=== PATIENT | female | born 1945 | race Caucasian/White ===

== ENCOUNTER 2020-07-06 20:30 | Observation (INO) | payer MEDICARE ==
[2020-07-06] MEDS ORDERED: Nitroglycerin 0.4 MG TAB (25 Tab Bottle) SL PRN (21:51)
--- NOTE | 2020-07-06 22:17 | PDOC.EVN ---
Event Note - Event Note Event Note: [id number] HP
--- NOTE | 2020-07-06 23:02 | HP ---
CHIEF COMPLAINT: Chest pain. HISTORY OF PRESENT ILLNESS: Ms. Cota is a 75-year-old female with past medical history of hypertension, hyperlipidemia, GERD, osteoarthritis, epilepsy that presents as a transfer from [facility] after she presented with chest pain. The patient is a poor historian and reports it is difficult to remember things done. She does recall that she has cardiac history, but she does not exactly know the nature or any procedures done. She has been having chest pain intermittently for the past week or so; today around dinnertime, it was worse. She describes the pain as sharp, left sided, not radiating. In the emergency room, she received 100 mg of Lovenox, two sprays of nitroglycerin, 324 aspirin at outside ED. EKG showed right bundle branch block with T wave inversions in V1, V2. The patient denies history of ID, CABG, and she reports she thinks that she had a stress test in the past, but she does not recall the results. Currently, the patient is feeling better. Initial troponin was 0.03, repeat troponin 0.01. The patient is being admitted to hospital for further management. PAST MEDICAL HISTORY: As mentioned above in history of present illness. PAST SURGICAL HISTORY: 1. Bladder repair x2, cholecystectomy. 2. Hysterectomy. 3. Tubal ligation. SOCIAL HISTORY: Denies alcohol use. Denies drug use. No smoking history. FAMILY HISTORY: Reviewed and noncontributory. HOME MEDICATIONS: Please see home medication reconciliation form for updated medications. ALLERGIES: ALLERGIC TO CIPRO. REVIEW OF SYSTEMS: Review of 14 systems is negative except what is mentioned in history of present illness. PHYSICAL EXAMINATION: GENERAL: The patient is awake, alert, does not appear to be in acute distress. VITAL SIGNS: Blood pressure is 180/90, pulse is 77, respiratory rate is 19, temperature 98.5, and oxygen saturation is 95% on room air. HEAD AND NECK: Normocephalic and atraumatic. Neck is supple. No JVD. CHEST: Fair bilateral air entry. HEART: S1, S2. Regular. ABDOMEN: Soft, nontender. Bowel sounds present. NEUROLOGIC: Awake, alert, moving extremities. PSYCH: Unable to assess. EXTREMITIES: No clubbing or cyanosis. GENITOURINARY: No suprapubic tenderness. No flank tenderness. LABORATORY DATA: Initial troponin 0.03 and repeat troponin 0.01. WBC 6.1, hemoglobin 14.4, platelets 192. Sodium 142, potassium 3.7, BUN is 21, creatinine 1.1. Chest x-ray, no acute findings. ASSESSMENT: 1. Acute chest pain, rule out acute coronary syndrome. 2. Detectable troponin. 3. Hypertension. 4. Hyperlipidemia. 5. Arthritis. 6. Epilepsy. PLAN: 1. Admit. 2. Aspirin. 3. Telemetry monitoring. 4. Cardiac stress test. 5. Consider Cardiology consultation in a.m. 6. Reconcile home medications. 7. DVT prophylaxis as appropriate. 8. Expected length of stay, at least 1 midnight if the patient is stable and further workup negative. Job ID: [id number]
[2020-07-07 01:04] VITALS: BMI 38.0
[2020-07-07] MEDS ORDERED: HYDROcodone/Acetaminophen 10/325 mg Tablet PO PRN (07:15)
[2020-07-07] MEDS ORDERED: LACTASE 9000 UNIT PO PRN (07:15)
[2020-07-07] MEDS ORDERED: Lactase 9,000 UNIT CHEWABLE TAB PO PRN (07:37)
[2020-07-07 07:57] VITALS: TEMP 97.8
[2020-07-07] MEDS ORDERED: LACTASE PO SCH (08:00)
[2020-07-07] MEDS ORDERED: Aspirin 325 mg Enteric Coated Tablet PO SCH (09:00)
[2020-07-07] MEDS ORDERED: FLUOXETINE HCL 20 MG PO SCH (09:00)
[2020-07-07] MEDS ORDERED: FLUoxetine HCl 20 MG CAP PO SCH (09:00)
[2020-07-07] MEDS ORDERED: Enoxaparin Sodium 30 MG/0.3 ML SYRINGE SC SCH (09:00)
[2020-07-07] MEDS ORDERED: Cyanocobalamin (Vitamin B-12) 1,000 MCG TAB PO SCH (09:00)
[2020-07-07] MEDS ORDERED: Docusate 100 MG CAP PO SCH ×2 (09:00)
[2020-07-07] MEDS ORDERED: CYANOCOBALAMIN 250 MCG PO SCH (09:00)
[2020-07-07] MEDS ORDERED: OXcarbazepine 300 MG TAB PO SCH (09:00)
[2020-07-07] MEDS ORDERED: Rosuvastatin 10 MG TAB PO SCH (09:00)
[2020-07-07] MEDS ORDERED: Clopidogrel Bisulfate 75 MG TAB PO SCH ×2 (09:00)
[2020-07-07] MEDS ORDERED: FLU VACC QS2020-21(65YR UP)/PF 240 MCG/0.7 ML SYRINGE IM ONE (09:00)
[2020-07-07] MEDS ORDERED: Non-Formulary Item 1 EACH (Esomeprazole Magnesium [Nexium] 40 MG Capsule.Dr) PO SCH (09:00)
[2020-07-07 11:00] VITALS: BP 142/80
--- NOTE | 2020-07-07 11:23 | NM ---
EXAM: Nuclear medicine cardiac perfusion examination with ejection fraction HISTORY: Chest pain TECHNIQUE: Rest images: Not performed Stress images: 30 mCi of technetium 99m sestamibi; Adenosine COMPARISON: 11/10/2004 FINDINGS: Tomographic images: No perfusion defects seen on the nonattenuated corrected images Gated images: Normal wall motion and ejection fraction of 65%. EDV: 88 mL LHR: 0.3 IMPRESSION: No perfusion defects with stress
[2020-07-07] MEDS: Lactase 9,000 UNIT CHEWABLE TAB PO SCH ×2 (12:09→12:19)
--- NOTE | 2020-07-07 13:22 | STRESS ---
Acquisition Time: 2020-07-07 09:23:19 Total Exercise Time: 00:04:00 Test Indications: CHEST PAIN Medications: Protocol: ADENOSINE Max HR: 098 BPM 67% of Pred: 145 BPM Max BP: 132/082 mmHG Max Work Load: 1.0 METS THE PATIENT WAS INJECTED WITH ADENOSINE. SHE DID DEVELOP CHEST PAIN. THERE WAS NO SIGNIFICANT ST DEPRESSION. AWAIT NUCLEAR IMAGES FOR DEFINITIVE DIAGNOSIS. Confirmed by STEF REECE ([id number]), photography editor LEO SALAS ([id number]) on 07/07/2020 1:21:36 PM Referred By: Gabriel ARCE Confirmed By:STEF REECE
[2020-07-07] MEDS ORDERED: ADENOSINE 60 MG/20 ML VIAL ONE (14:45)
--- NOTE | 2020-07-07 16:01 | DIS ---
DATE OF ADMISSION: 07/06/2020 DATE OF DISCHARGE: 07/07/2020 DISCHARGE DISPOSITION: Home. PRIMARY DISCHARGE DIAGNOSIS: Chest pain, noncardiac. SECONDARY DISCHARGE DIAGNOSES: Hypertension, dyslipidemia, history of osteoarthritis, seizure disorder, obesity with BMI of 38. PROCEDURES DONE DURING HOSPITALIZATION: Chest x-ray done on the day of admission showed no acute finding. Nuclear stress test done showed ejection fraction of 65%. There was no perfusion defect seen. H and H 14 and 47, platelet count 192, MCV 98, BUN 21, creatinine 1.1. Troponin I 0.04. CK-MB 0.5. Albumin 4.1. DISCHARGE MEDICATIONS: 1. Crestor 10 mg p.o. daily. 2. Lactase enzyme three times with meals. 3. Lasix 40 mg daily. 4. Berkley p.r.n. for pain. 5. Norvasc 10 mg daily. 6. Oxcarbazepine 300 mg three times daily. 7. Potassium chloride 10 mEq p.o. daily. 8. Lisinopril 40 mg p.o. daily. ALLERGIES: TO CIPROFLOXACIN AND CHOCOLATE FLAVOR. DISCHARGE PLAN: The patient to follow up with Dr. Nuñez in 1 week. BRIEF COURSE DURING HOSPITALIZATION: The patient initially came in with complaints of chest pain. In view of multiple risk factors, the patient was placed under observation on telemetry. Three sets of troponin were done, which was indeterminate, peaking up to 0.04. Her CK-MB was within normal limits. A nuclear stress test done showed no perfusion defects. She has remained hemodynamically stable and will be shortly discharged home. She is ambulating and eating well prior to discharge. The patient has been advised to follow up with Dr. Nuñez in 1 week. Please note, I have seen and examined the patient on the day of discharge. Job ID: [id number]
[2020-07-08] MEDS ORDERED: FLUoxetine HCl 20 MG CAP PO SCH (09:00)
[2020-07-08] MEDS ORDERED: Amlodipine 10 MG TAB PO SCH (09:00)
[2020-07-08] MEDS ORDERED: Furosemide 40 MG TAB PO SCH (09:00)
[2020-07-08] MEDS ORDERED: Lisinopril 20 MG TAB PO SCH (09:00)
== END 2020-07-07 17:05 | disposition home or self-care (01) ==
LOC: ERS 20:30 → 2NO 21:44
PROVIDERS: ADMIT Internal Medicine; ATTEND Internal Medicine
DX: R07.89 Other chest pain (principal); I10 Essential (primary) hypertension; E78.5 Hyperlipidemia, unspecified; M19.90 Unspecified osteoarthritis, unspecified site; G40.909 Epilepsy, unspecified, not intractable, without status epilepticus; K21.9 Gastro-esophageal reflux disease without esophagitis; E66.9 Obesity, unspecified; Z68.38 Body mass index [BMI] 38.0-38.9, adult; Z86.73 Personal history of transient ischemic attack (TIA), and cerebral infarction without residual deficits; Z79.02 Long term (current) use of antithrombotics/antiplatelets; Z79.899 Other long term (current) drug therapy; Z88.1 Allergy status to other antibiotic agents; Z91.02 Food additives allergy status; Z23 Encounter for immunization
CPT/HCPCS: 78452; 84484 ×2; 90662; 90732; 93005; 93017; 96372; 99285; A9500; G0008; G0009; G0378 ×2; 36415; 90471; J0153; J1650

== ENCOUNTER 2020-12-21 11:56 | Observation (INO) | payer MEDICARE ==
[2020-12-21 12:46] LABS: #Basophils 0.1 thou/uL (0.0-0.2); #Eosinphils 0.1 thou/uL (0.0-0.7); #Lymphocytes 1.8 thou/uL (1.20-3.40); #Monocytes 0.3 thou/uL (0.11-0.59); #Neutrophils 3.8 thou/uL (1.40-6.50); %Eosinophils 0.9 % (0.0-10.0); %Lymphocytes 29.9 % (21.0-51.0); %Monocytes 4.6 % (0.0-10.0); %Neutrophils 63.6 % (42.0-75.0); Hemoglobin 13.7 g/dL (12.0-16.0); Mean Corpuscular HGB CONC 33.3 g/dL (32.0-36.0); Mean Corpuscular Hemoglobin 31.9 pg (27.0-31.0); Mean Platelet Volume 6.9 fL (7.4-10.4); Platelet Count 177 thou/uL (130-400); RBC Distribution Width 12.4 % (11.5-14.5); Red Blood Cell (RBC) Count 4.29 mill/uL (4.20-5.40); White Blood Cell (WBC) Count 5.9 thou/uL (4.8-10.8)
[2020-12-21 13:02] LABS: ALT (SGPT) 10 U/L (8-55); AST (SGOT) 13 U/L (5-34); Albumin 3.5 g/dL (3.4-4.8); Alkaline Phosphatase 91 U/L (40-110); Anion Gap 18 mmol/L (10-20); BUN (Urea Nitrogen) 24 mg/dL (9.8-20.1); Bilirubin, Total 0.5 mg/dL (0.2-1.2); Calc. Creatinine Clearance 0 mL/min (70-130); Calcium 8.5 mg/dL (7.8-10.44); Carbon Dioxide 18 mmol/L (23-31); Chloride 106 mmol/L (98-107); Globulin 3.2 g/dL (2.4-3.5); Glucose 106 mg/dL (83-110); Potassium 3.6 mmol/L (3.5-5.1); Protein, Total 6.7 g/dL (5.8-8.1); Sodium 138 mmol/L (136-145)
[2020-12-21 14:01] LABS: Bilirubin Negative (Negative); Blood, Urine Negative (Negative); Clarity Clear (Clear); Glucose, Urine (Dipstick) Normal (Negative); Ketone, Urine Negative (Negative); Leukocyte Negative Leu/uL (Negative); Nitrite Negative (Negative); Protein, Urine (Dipstick) Negative (Neg-Trace); Specific Gravity, Urine 1.015 (1.002-1.036); Urobilinogen Normal mg/dL (Less than 2); pH, Urine 5.5 (5.0-9.0)
[2020-12-21] MEDS ORDERED: hydrALAZINE 20 MG/ML VIAL SLOW IVP PRN (15:42)
[2020-12-21] MEDS ORDERED: Aspirin 325 MG TAB PO SCH (15:45)
[2020-12-21] MEDS ORDERED: Ondansetron ODT 4 MG TAB PO PRN (16:19)
[2020-12-21] MEDS ORDERED: Acetaminophen 650 MG Suppository PR PRN (16:19)
[2020-12-21] MEDS ORDERED: Ondansetron PF 4 MG/2 ML Vial IVP PRN (16:19)
[2020-12-21 16:50] LABS: Hemoglobin A1c 5.5 % (4.0-6.0)
[2020-12-21 18:13] VITALS: BMI 41.3
[2020-12-21] MEDS: Atorvastatin Calcium 40 MG TAB PO SCH (20:25)
[2020-12-22 02:23] LABS: SARS-CoV-2 PCR by NAA Not Detected (NotDetected)
[2020-12-22 04:58] LABS: #Eosinphils 0.1 thou/uL (0.0-0.7); #Lymphocytes 2.2 thou/uL (1.20-3.40); #Monocytes 0.4 thou/uL (0.11-0.59); #Neutrophils 3.6 thou/uL (1.40-6.50); %Basophils 0.6 % (0.0-1.0); %Eosinophils 0.8 % (0.0-10.0); %Lymphocytes 35.3 % (21.0-51.0); %Monocytes 5.6 % (0.0-10.0); %Neutrophils 57.8 % (42.0-75.0); Hemoglobin 12.6 g/dL (12.0-16.0); Mean Corpuscular HGB CONC 32.4 g/dL (32.0-36.0); Mean Corpuscular Hemoglobin 30.8 pg (27.0-31.0); Mean Corpuscular Volume 95.2 fL (78.0-98.0); Mean Platelet Volume 7.9 fL (7.4-10.4); Platelet Count 170 thou/uL (130-400); RBC Distribution Width 12.2 % (11.5-14.5); White Blood Cell (WBC) Count 6.2 thou/uL (4.8-10.8)
[2020-12-22] MEDS: Acetaminophen 325 MG TAB PO PRN ×3 (05:12→21:50)
[2020-12-22 05:23] LABS: Anion Gap 11 mmol/L (10-20); BUN (Urea Nitrogen) 22 mg/dL (9.8-20.1); Calc. Creatinine Clearance 87 mL/min (70-130); Calcium 8.3 mg/dL (7.8-10.44); Carbon Dioxide 27 mmol/L (23-31); Cardiac Risk 7.2 (Less than 4.5); Chloride 103 mmol/L (98-107); Cholesterol 208 mg/dl (< 200 Desired); Glucose 92 mg/dL (83-110); HDL Cholesterol 29 mg/dL (>60 Neg Risk); LDL Cholesterol, Calculated 159 mg/dL; Potassium 3.3 mmol/L (3.5-5.1); Sodium 138 mmol/L (136-145); Triglycerides 99 mg/dL (Less than 150)
[2020-12-22] MEDS: OXcarbazepine 300 MG TAB PO SCH ×3 (06:43→21:51)
[2020-12-22] MEDS ORDERED: Enoxaparin Sodium 40 MG/0.4 ML SYRINGE SC SCH (09:00)
[2020-12-22] MEDS: Aspirin 81 mg Enteric Coated Tablet PO SCH (09:25)
[2020-12-22] MEDS ORDERED: Lorazepam 2 MG/ML VIAL SLOW IVP PRN (11:00)
[2020-12-22] MEDS ORDERED: Iopamidol-370 76% 500 ML 1 ML ONE (11:24)
[2020-12-22] MEDS: Meclizine HCl 25 MG TAB PO PRN (11:59)
[2020-12-22] MEDS: Atorvastatin Calcium 40 MG TAB PO SCH (21:51)
[2020-12-23] MEDS: Meclizine HCl 25 MG TAB PO PRN ×2 (00:27→11:02)
[2020-12-23 05:11] LABS: #Basophils 0.1 thou/uL (0.0-0.2); #Eosinphils 0.1 thou/uL (0.0-0.7); #Lymphocytes 2.7 thou/uL (1.20-3.40); #Monocytes 0.3 thou/uL (0.11-0.59); #Neutrophils 2.8 thou/uL (1.40-6.50); %Basophils 1.2 % (0.0-1.0); %Eosinophils 0.9 % (0.0-10.0); %Monocytes 5.6 % (0.0-10.0); %Neutrophils 47.3 % (42.0-75.0); Hemoglobin 12.4 g/dL (12.0-16.0); Mean Corpuscular HGB CONC 33.8 g/dL (32.0-36.0); Mean Corpuscular Hemoglobin 32.1 pg (27.0-31.0); Mean Corpuscular Volume 94.8 fL (78.0-98.0); Platelet Count 160 thou/uL (130-400); Red Blood Cell (RBC) Count 3.88 mill/uL (4.20-5.40); White Blood Cell (WBC) Count 5.9 thou/uL (4.8-10.8)
[2020-12-23 05:40] LABS: Anion Gap 11 mmol/L (10-20); BUN (Urea Nitrogen) 21 mg/dL (9.8-20.1); Calc. Creatinine Clearance 83 mL/min (70-130); Calcium 8.3 mg/dL (7.8-10.44); Carbon Dioxide 27 mmol/L (23-31); Chloride 99 mmol/L (98-107); Glucose 96 mg/dL (83-110); Potassium 3.3 mmol/L (3.5-5.1); Sodium 134 mmol/L (136-145)
[2020-12-23] MEDS: OXcarbazepine 300 MG TAB PO SCH ×2 (06:22→14:47)
[2020-12-23] MEDS ORDERED: Enoxaparin Sodium 40 MG/0.4 ML SYRINGE SC SCH (09:00)
[2020-12-23] MEDS: Aspirin 81 mg Enteric Coated Tablet PO SCH (11:00)
[2020-12-23] MEDS: Acetaminophen 325 MG TAB PO PRN (11:01)
[2020-12-23 15:23] VITALS: BP 127/62; TEMP 98.1
== END 2020-12-23 18:30 | disposition home or self-care (01) ==
LOC: ERS 11:56 → ERHOLD 15:38 → 2SE 18:00
PROVIDERS: ADMIT Internal Medicine; ATTEND Internal Medicine
DX: R42 Dizziness and giddiness (principal); I10 Essential (primary) hypertension; G40.909 Epilepsy, unspecified, not intractable, without status epilepticus; E78.5 Hyperlipidemia, unspecified; K21.9 Gastro-esophageal reflux disease without esophagitis; M19.90 Unspecified osteoarthritis, unspecified site; D16.4 Benign neoplasm of bones of skull and face; I65.23 Occlusion and stenosis of bilateral carotid arteries; N30.00 Acute cystitis without hematuria; J44.9 Chronic obstructive pulmonary disease, unspecified; R53.81 Other malaise; E66.01 Morbid (severe) obesity due to excess calories; Z68.41 Body mass index [BMI] 40.0-44.9, adult; Z86.73 Personal history of transient ischemic attack (TIA), and cerebral infarction without residual deficits; Z79.82 Long term (current) use of aspirin; Z79.899 Other long term (current) drug therapy; Z88.1 Allergy status to other antibiotic agents; Z91.018 Allergy to other foods; Z20.822 Contact with and (suspected) exposure to COVID-19
CPT/HCPCS: 70450; 70496; 70498; 70551; 71045; 80048 ×2; 80053; 80061; 80185; 81003; 83036; 84484; 85025 ×3; 93005; 93306; 95712; 95819; 95957; 99285; U0003; U0005; 36415; 87635; 96374; G0378; J1650; J2060; Q0162; Q9967